=== PATIENT | female | born 1950 | race Caucasian/White ===

== ENCOUNTER → 2017-01-19 | Outpatient (CLI) | payer MEDICARE, OTHER ==
[~2017-01-19] MED LIST: BIO-TN500 MCG PO; BIOTIN1000 MCG PO; CALCIUM ACETAT667 MG PO; CARDURA1 MG PO; CARVEDILOL25 MG PO; COMBIGAN 0.2%-0.5 ML OU; DIOVAN320 MG PO; ECOTRIN81 MG PO; ELOQUIS PO; HUMALOG100 U/ML; LASIX20 MG PO; LASIX40 MG PO; LIPITOR40 MG PO; NITRODISC T; NOVOLOG100 U/ML SC; RANEXA500 MG PO; RENO CAPS1 SGL PO; SYNTHROID,LEVO88 MCG PO; SYNTHROID0.088 MG PO; TERAZOSIN1 MG PO; VENTOLIN0.09 MG/AC IH; VIBRAMYCIN100 MG PO; VITAMIN D32000 I1 PO; VITAMIN E ACET PO; VITAMIN E100 I1 PO; ZITHROMAX Z PA250 MG PO; eliquis
== END ==
LOC: US 01:06
DX: R10.2 Pelvic and perineal pain (principal)

== ENCOUNTER 2018-04-02 11:33 | Inpatient (IN) | payer MEDICARE, OTHER ==
[~2018-04-02] VITALS: Ht 154.9 cm; Wt 91.7 kg
--- NOTE | ~2018-04-02 | PR ---
[place], [place] PROGRESS NOTE NAME: GLEN COLMENARES [facility] #: [id number] UNIT #: [id number] ROOM: 525 DOCTOR: JONO BOLANOS MD BIRTHDATE: [birth year] DOS: 04/03/2018 CARDIOLOGY PROGRESS NOTE SUBJECTIVE: The patient was seen at her bedside today, 04/03/2018, with her in attendance. She is a 67-year-old woman with a history of diabetes, on an insulin pump, who presented to the hospital after a syncopal episode at home. She apparently ate a piece of toast without any spread for breakfast and an hour and a half later in her baptism after walking to her pew, she sat down and then lost consciousness. She did not have any excessive sweating beforehand, although she felt nauseous afterwards. She took two sugar tablets and then checked her sugar. Her blood sugar at that point was 90 and subsequently was 65. She was orthostatic as well. She was given sugar and fluid and now feels back to normal. I did review her echocardiogram, which showed normal left ventricular size, wall motion and systolic function with mild LVH and stage 3 diastolic relaxation abnormalities. There were no wall motion abnormalities or significant valve abnormalities. PHYSICAL EXAMINATION: VITAL SIGNS: Her pulse is 94 and irregularly irregular. Blood pressure is 154/75. She is no longer orthostatic. She is afebrile. NECK: Supple. She has no jugular distention. Carotids are full. Her neck exam does show a right carotid bruit. LUNGS: Respirations are unlabored. Chest is clear. HEART: Has an irregularly irregular rhythm without murmurs or gallops. ABDOMEN: Benign. EXTREMITIES: Showed no edema. Carotid ultrasound did show greater than 70% stenosis on the right and less than 50% stenosis on the left. IMPRESSION: 1. Syncopal episode, probably due to hypoglycemia, although I cannot rule out orthostatic hypotension and dehydration. 2. Diabetes mellitus managed with insulin on an insulin pump. 3. Atrial fibrillation. 4. Chronic diastolic heart failure. PLAN: I would have a dietitian speak to her about the kinds of food she eats especially since she is on an insulin pump. I did encourage her to remain well hydrated. No other cardiac workup is planned at this time. She does have right carotid stenosis and she should see a vascular surgeon for their opinion as an outpatient; however, I doubt that it had anything to do with her syncopal episode and at this point appears to be asymptomatic. I thank the hospitalist physicians for asking our advice regarding her care. [place], [place] PROGRESS NOTE NAME: GLEN COLMENARES UNIT #: [id number] ROOM: [facility] DOCTOR: JONO BOLANOS MD BIRTHDATE: [birth year] JONO BOLANOS MD CM:PNTRANS [id number] JONO BOLANOS MD 04/04/18 0205 interface
--- NOTE | ~2018-04-02 | EKG ---
[place], [place] ELECTROCARDIOGRAM REPORT NAME: GLEN COLMENARES UNIT #: [id number] ROOM: 525 DOCTOR: JEOVANY DRAFT REPORT BIRTHDATE: [birth year] [facility] Test Date: 2018-04-02 Test Time: 11:49:28 Pat Name: GLEN COLMENARES Department: Room: [facility] Gender: F Feed Weigher: Rayna Paul : 1950 Requested By: HERI ADLER Order Number: [id number] Reading MD: Fiordaliza Hensley MD Measurements Intervals [place] Rate: 91 P: IN: QRS: 45 QRSD: 94 T: 18 QT: 392 QTc: 483 Interpretive Statements Atrial fibrillation Low voltage, precordial leads No previous ECG available for comparison Electronically Signed On 04-07-2018 9:26:23 PST by Fiordaliza Hensley MD CM:EKGRPT:ELECTROCARDIOGRAM REPORT [id number] HERI ADLER MD EPIPHDORETHA DRAFT REPORT HERI ADLER MD
[~2018-04-02 11:33] MED LIST changes: +RENO CAPS SOFTGE1 MG PO; -RENO CAPS1 SGL PO
[2018-04-02 11:39] VITALS: BP 133/59
--- NOTE | 2018-04-02 11:45 | NUR ---
PATIENT IS ALERT AND ORIENTED. LUNG BERRY CLEAR THROUGHOUT. TRACE EDEMA NOTED TO BILATERAL LOWER EXTREMITIES. INSULIN PUMP NOTED IN WHICH GLUCOSE WAS CHECKED BY AMBULANCE WHICH WAS REPORTED TO BE 122. PATIENT REPORTS SHE 0NLY ATE 1 PIECE OF TOAST TODAY. SHE REPORTS AFTER SHE CAME TO THEY GAVE HER 2 GLUCOSE TABLETS WHILE IN [place]. NO DIAPHORESIS NOTED. PATIENT DOES REPORTS AFTER WALKING UP THE STAIRS SHE DOES REMEMBER BEING SLIGHTLY SOB IN WHICH SHE CURRENTLY DENIES.
[2018-04-02 12:16] LABS: BASO % 0.8 % (0.0-1.0); EOS # 0.1 10*3/uL (0.0-0.4); EOS % 1.3 % (1.0-4.0); HEMATOCRIT 36.5 % (37.0-47.0); LYMPH # 0.6 10*3/uL (1.3-4.4); LYMPH % 11.3 % (27.0-41.0); MEAN CELL VOLUME 98.1 fl (81.0-99.0); MEAN CORPUSCULAR HGB 32.3 pg (27.0-31.0); MEAN CORPUSCULAR HGB CONC 32.9 g/dl (33.0-37.0); MEAN PLATELET VOLUME 9.9 fl (9.6-12.3); MONO # 0.5 10*3/uL (0.1-1.0); MONO % 9.5 % (3.0-9.0); NEUT # 4.1 10*3/uL (2.3-7.9); NEUT % 76.9 % (47.0-73.0); PLATELET COUNT AUTOMATED 118 10*3/uL (130-400); RED BLOOD COUNT 3.72 10*6/uL (4.10-5.10); RED CELL DISTRI WIDTH 15.4 % (0-14.5); WHITE BLOOD COUNT 5.3 10*3/uL (4.8-10.8)
[2018-04-02 12:26] LABS: ACT PARTIAL THROMBO TIME 30.8 SECONDS (20.8-31.5); INTERNATIONAL NORM RATIO 1.3 (2.0-3.5)
[2018-04-02 12:33] LABS: ALBUMIN 3.1 gm/dl (3.1-4.5); CREATININE 2.17 mg/dL (0.55-1.02)
[2018-04-02 12:34] LABS: TROPONIN I 0.015 ng/ml (<0.045)
[2018-04-02 12:39] LABS: THYROID STIM HORMONE (HS) 1.57 uIU/ml (0.358-4.75)
[2018-04-02 12:50] VITALS: BP 123/54
--- NOTE | 2018-04-02 13:03 | NUR ---
PATIENT DENIES ANY CURRENT SYMPTOMS. GLUCOSE WAS NOTED TO BE 65 ON LAB DRAW. ORANGE JUICE AND CRACKERS PROVIDED
[2018-04-02 13:15] VITALS: BP 92/76
--- NOTE | 2018-04-02 13:15 | NUR ---
A 67, admitted to 5E, under the services of JUAN MIGUEL Sibley DO with a diagnosis of SYNCOPE. Chief complaint is SYNCOPE. Patient arrived via stretcher from ER. Monitor applied. Initial assessment completed. Vital signs taken and recorded. JUAN MIGUEL SIBLEY DO notified of admission to the unit. Orders received. See assessment for past medical history, medications and allergies. Patient and/or family oriented to unit. [facility] visitation policy reviewed. Clothing/patient valuable form completed. TESS SARMIENTO
[2018-04-02 13:24] VITALS: BP 129/59
--- NOTE | 2018-04-02 13:48 | NUR ---
NOTIFIED DR HUANG OF +ORTHOS
--- NOTE | 2018-04-02 13:52 | NUR ---
ANSWERING SERVICE WAS NOTIFIED OF DR. CICI SUN. RESPONSE OF NOTIFICATION WAS OK I GOT YOUR MESSAGE. IRISH PECK
[2018-04-02] MEDS ORDERED: BIOTIN10000 MC1 PO (14:28)
[2018-04-02] MEDS ORDERED: LASIX20 MG PO (14:30)
[2018-04-02] MEDS ORDERED: ELIQUIS5 M1 PO (14:31)
--- NOTE | 2018-04-02 14:36 | NUR ---
MED REC UPDATED BY LIST PROVIDED BY PATIENT. PATIENT ALSO HAS AN INSULIN PUMP.
[2018-04-02 16:00] VITALS: BP 152/73
[2018-04-02 20:00] VITALS: BP 146/90
--- NOTE | 2018-04-02 22:40 | NUR ---
24 HR chart check completed.
--- NOTE | 2018-04-02 23:03 | NUR ---
ASSUMED CARE OF PT AT THIS TIME. PT IS AWAKE, A&OX3, SITTING UP IN CHAIR. IVF INFUSING AT 80/HR PER ORDER. PATIENT DENIES ANY DIZZINESS, SOB, OR ANY OTHER GENERALIZED DISCOMFORT. WILL MONITOR. CALL LIGHT LEFT IN REACH.
[2018-04-03] VITALS: BP 151/68
--- NOTE | 2018-04-03 03:05 | NUR ---
NOTIFIED OF + ORTHOS. ALSO AWARE OF PT ASYMTOMATIC AND WORRIED ABOUT RECEIVING MORE FLUIDS DUE TO HX OF CHF. PER , D/C FLUIDS AFTER FIRST BAG IS COMPLETE.
--- NOTE | 2018-04-03 03:26 | NUR ---
BAG 1 IVF COMPLETE. DISCONTINUED FLUIDS PER 'S ORDERS.
[2018-04-03 06:37] LABS: BASO % 0.4 % (0.0-1.0); EOS # 0.1 10*3/uL (0.0-0.4); EOS % 1.2 % (1.0-4.0); HEMATOCRIT 36.8 % (37.0-47.0); HEMOGLOBIN 11.7 g/dl (12.0-16.0); LYMPH # 0.9 10*3/uL (1.3-4.4); LYMPH % 17.6 % (27.0-41.0); MEAN CORPUSCULAR HGB 31.8 pg (27.0-31.0); MEAN CORPUSCULAR HGB CONC 31.8 g/dl (33.0-37.0); MEAN PLATELET VOLUME 10.5 fl (9.6-12.3); MONO # 0.5 10*3/uL (0.1-1.0); MONO % 10.5 % (3.0-9.0); NEUT # 3.4 10*3/uL (2.3-7.9); NEUT % 70.1 % (47.0-73.0); PLATELET COUNT AUTOMATED 114 10*3/uL (130-400); RED BLOOD COUNT 3.68 10*6/uL (4.10-5.10); WHITE BLOOD COUNT 4.9 10*3/uL (4.8-10.8)
[2018-04-03 06:54] LABS: ALBUMIN 3.2 gm/dl (3.1-4.5); CREATININE 1.93 mg/dL (0.55-1.02); PHOSPHOROUS 3.5 mg/dL (2.5-4.9); POTASSIUM 4.4 mmol/L (3.5-5.1)
--- NOTE | 2018-04-03 07:14 | NUR ---
SPOKE TO REGARDING ECHO COMPLETE VS ECHO LIMITED. INSTRUCTED TO KEEP ECHO COMPLETE ORDERED BY .
[2018-04-03 08:00] VITALS: BP 135/81
[2018-04-03 12:00] VITALS: BP 154/75
--- NOTE | 2018-04-03 12:31 | NUR ---
Kennel Hand in to talk to patient. Patient states lives at HOME with . There are NO steps in the home. Physician: NONE AT THIS TIME Pharmacy: [facility] Home health services: NONE Patient's level of ADLs: INDEPENDENT Patient has working utilities: YES DME: C PAP Follow-up physician's appointment after d/c: WILL NEED TO FIND PCP AND MAKE APPOINTMENT Does patient want to access PORTAL?: NO Discharge plan PT STATES SHE LIVES AT HOME WITH HER AND IS INDEPENDENT IN CARE. STATES SHE DOES NOT HAVE A PCP AT THE PRESENT TIME AND IS LOOKING FOR A NEW ONE BECAUSE HERS LEFT TOWN. SHE DOES SEE DR PEARCE, DR MARIE AND DR GODFREY THOUGH REGULARLY. DENIES ANY HOME NEEDS ON DISCHARGE. STATES HER WILL TAKE HER HOME ON DISCHARGE. WILL CONTINUE TO FOLLOW.. MARQUITA PRINGLE
--- NOTE | 2018-04-03 14:25 | NUR ---
AFTER SPEAKING WITH DR BOLANOS HE BELIEVES THAT THE PATIENT'S SYNCOPAL EPISODE WAS RELATED TO LOW BLOOD SUGAR. DR BOLANOS STATED HE RECOMMENDED SHE SPEAK TO A HOURLY SIGN LANGUAGE INTERPRETER. I INFORMED HIM I WOULD ORDER A DIETARY CONSULT.
--- NOTE | 2018-04-03 14:43 | NUR ---
GLEN COLMENARES [id number] Please refer to the physician's history and physical for past medical history, comorbid conditions, and allergies. Diagnosis: SUNCOPE AND COLLAPSE Sean Score: 23,LOW OR NO RISK WOUND DESCRIPTIONS: PATIENT'S LEFT 3RD TOE ASSESSED. CALLUS NOTED MEASURING 0.5cm X 0.5cm X <0.1cm. NO REDDNESS OR DRAINAGE. PATIENT DENIED PAIN AT TIME OF ASSESSMENT. PATIENT STATES THIS AREA HAS "BEEN THERE FOR YEARS." NO TREATMENT AT THIS TIME. Surface the patient is resting on: Isoflex SKIN PREVENTION RECOMMENDATION: 1. Pressure redistribution support surface as appropriate 2. Elevate heels 3. Remove boots/TEDS every shift and reapply 4. Head of bed 30 degrees as tolerated 5. Assess nutrition and hydration 6. Manage moisture 7. Avoid the use of containment devices while in bed 8. Use absorptive products on surfaces limit layers of linens on bed 9. Turn and reposition every 1-2 hours in bed and every 1 hour in chair as tolerated 10. Weight shifts every 15 minutes while up in chair 11. Offloading with pillows or device to keep heels elevated off bed 12. Monitor skin at least every shift 13. Inspect under medical devices twice a day
[2018-04-03 16:00] VITALS: BP 124/58
--- NOTE | 2018-04-03 17:07 | NUR ---
Nutritional Support Services Note: Discusing with pt and pts 1800cal diabetic diet. Diet copy given to pt. She has a good understanding of the diet. Needs to better comply with diet kind of got off track per patient. She also avoids high salt foods. All questions were answered. Encouraged follow up if needed. Dayana Ramirez Rdn Ld
--- NOTE | 2018-04-03 17:28 | NUR ---
PT DISCHARGED AT THIS TIME. IV REMOVED AND PRESSURE DRESSING APPLIED. VERBALIZED UNDERSTANDING OF DISCHARGE INSTRUCTION. HEART MONITOR RETURNED TO FLOOR.
== END 2018-04-03 17:28 | disposition home or self-care (01) | DRG 312 ==
LOC: ED 11:33 → 5E 12:35 → EDHOLD 12:35 → 5E 12:42
PROVIDERS: Emergency Medicine; Family Medicine; ADMIT Internal Medicine
DX: I95.1 Orthostatic hypotension (principal); N18.4 Chronic kidney disease, stage 4 (severe); I13.0 Hypertensive heart and chronic kidney disease with heart failure and stage 1 through stage 4 chronic kidney disease, or unspecified chronic kidney disease; I50.32 Chronic diastolic (congestive) heart failure; E03.9 Hypothyroidism, unspecified; I48.2 Chronic atrial fibrillation; E86.0 Dehydration; E11.649 Type 2 diabetes mellitus with hypoglycemia without coma; H40.9 Unspecified glaucoma; E11.22 Type 2 diabetes mellitus with diabetic chronic kidney disease; Z88.2 Allergy status to sulfonamides; Z98.42 Cataract extraction status, left eye; Z98.41 Cataract extraction status, right eye; Z79.4 Long term (current) use of insulin; Z80.42 Family history of malignant neoplasm of prostate; Z79.82 Long term (current) use of aspirin

== ENCOUNTER 2018-09-20 10:13 | Emergency (ER) | payer MEDICARE, OTHER ==
[~2018-09-20] VITALS: Ht 152.4 cm; Wt 90.7 kg
--- NOTE | ~2018-09-20 | EKG ---
[place], [place] ELECTROCARDIOGRAM REPORT NAME: GLEN COLMENARES UNIT #: [id number] ROOM: DOCTOR: EPIPHANY DRAFT REPORT BIRTHDATE: [birth year] [facility] Test Date: 2018-09-20 Test Time: 10:14:53 Pat Name: GLEN COLMENARES Department: Room: Gender: F Industrial Relations Director: : 1950 Requested By: BRIGITTE SOSA Order Number: [id number] Reading MD: Zoey Haines Measurements Intervals [place] Rate: 82 P: [place]: QRS: 79 QRSD: 117 T: 61 QT: 382 QTc: 446 Interpretive Statements Atrial fibrillation Nonspecific intraventricular conduction delay Low voltage, extremity and precordial leads Consider anterior infarct Compared to ECG 04/02/2018 11:49:28 Intraventricular conduction delay now present Myocardial infarct finding now present Electronically Signed On 09-21-2018 8:38:03 PDT by Zoey Haines CM:EKGRPT:ELECTROCARDIOGRAM REPORT [id number] BRIGITTE THAYER DRAFT REPORT BRIGITTE SOSA M.D.
[~2018-09-20 10:13] MED LIST changes: +ELIQUIS5 M1 PO; +HARD NAILS2500 MCG PO
[2018-09-20 10:35] LABS: BASO % 0.5 % (0.0-1.0); EOS # 0.1 10*3/uL (0.0-0.4); EOS % 0.9 % (1.0-4.0); HEMATOCRIT 39.6 % (37.0-47.0); LYMPH # 0.6 10*3/uL (1.3-4.4); LYMPH % 9.5 % (27.0-41.0); MEAN CELL VOLUME 94.7 fl (81.0-99.0); MEAN CORPUSCULAR HGB 31.1 pg (27.0-31.0); MEAN CORPUSCULAR HGB CONC 32.8 g/dl (33.0-37.0); MONO # 0.6 10*3/uL (0.1-1.0); MONO % 8.9 % (3.0-9.0); NEUT # 5.2 10*3/uL (2.3-7.9); NEUT % 79.7 % (47.0-73.0); PLATELET COUNT AUTOMATED 137 10*3/uL (130-400); RED BLOOD COUNT 4.18 10*6/uL (4.10-5.10); RED CELL DISTRI WIDTH 17.7 % (0-14.5); WHITE BLOOD COUNT 6.5 10*3/uL (4.8-10.8)
[2018-09-20 10:47] LABS: ACT PARTIAL THROMBO TIME 27.3 SECONDS (20.0-32.1); INTERNATIONAL NORM RATIO 1.3 (2.0-3.5)
[2018-09-20 10:51] LABS: CREATININE 2.13 mg/dL (0.55-1.02); POTASSIUM 4.1 mmol/L (3.5-5.1); TOTAL PROTEIN 6.9 gm/dL (6.4-8.2); TROPONIN I 0.019 ng/ml (<0.045)
[2018-09-20 11:51] VITALS: BP 134/69
[2018-10-13] MEDS ORDERED: Lopressor25 MG PO (09:43)
[2018-10-13] MEDS ORDERED: [UNRECOGNIZED DRUG - OTHER] MC (09:47)
== END 2018-09-20 12:10 | disposition left against medical advice (07) ==
LOC: ED 10:13
PROVIDERS: Emergency Medicine
DX: S00.83XA Contusion of other part of head, initial encounter (principal); S00.12XA Contusion of left eyelid and periocular area, initial encounter; R55 Syncope and collapse; H11.32 Conjunctival hemorrhage, left eye; I48.91 Unspecified atrial fibrillation; E10.22 Type 1 diabetes mellitus with diabetic chronic kidney disease; I13.0 Hypertensive heart and chronic kidney disease with heart failure and stage 1 through stage 4 chronic kidney disease, or unspecified chronic kidney disease; N18.9 Chronic kidney disease, unspecified; E03.9 Hypothyroidism, unspecified; Z88.2 Allergy status to sulfonamides; Z79.899 Other long term (current) drug therapy; Z79.82 Long term (current) use of aspirin; W01.198A Fall on same level from slipping, tripping and stumbling with subsequent striking against other object, initial encounter; Y93.89 Activity, other specified; Y92.090 Kitchen in other non-institutional residence as the place of occurrence of the external cause; Y99.8 Other external cause status

== ENCOUNTER → 2018-10-10 | Outpatient (CLI) | payer MEDICARE, OTHER ==
[~2018-10-10] MED LIST changes: +Lopressor25 MG PO; +[UNRECOGNIZED DRUG - OTHER] MC
== END | disposition home or self-care (01) ==
LOC: MAMMO 02:11
DX: Z12.31 Encounter for screening mammogram for malignant neoplasm of breast (principal)

== ENCOUNTER 2018-11-25 13:16 | Emergency (ER) | payer MEDICARE, OTHER ==
[~2018-11-25] VITALS: Ht 152.4 cm; Wt 87.1 kg
[2018-11-25 13:23] VITALS: BP 128/72
== END 2018-11-25 15:40 | disposition home or self-care (01) ==
LOC: ED 13:16
DX: R04.0 Epistaxis (principal); I13.0 Hypertensive heart and chronic kidney disease with heart failure and stage 1 through stage 4 chronic kidney disease, or unspecified chronic kidney disease; E11.22 Type 2 diabetes mellitus with diabetic chronic kidney disease; N18.4 Chronic kidney disease, stage 4 (severe); I50.9 Heart failure, unspecified; E03.9 Hypothyroidism, unspecified; I48.2 Chronic atrial fibrillation; Z88.2 Allergy status to sulfonamides; Z79.899 Other long term (current) drug therapy; Z79.82 Long term (current) use of aspirin; Z79.4 Long term (current) use of insulin

== ENCOUNTER 2018-11-30 17:16 | Emergency (ER) | payer MEDICARE, OTHER ==
[~2018-11-30] VITALS: Wt 102.5 kg
[2018-11-30 17:40] LABS: ABG HCO3 21.6 mmol/l (22-26); ABG O2 SATURATION 97.4 % (95-97)
[2018-11-30 17:43] LABS: ABG BASE EXCESS -10.3 mmol/L (-2.0-2.0); ARTERIAL BLOOD GAS PCO2 71.4 mmHg (35-45); ARTERIAL BLOOD GAS PH 7.099 (7.35-7.45)
[2018-11-30 18:21] VITALS: BP 180/100
== END 2018-11-30 18:36 | disposition expired ==
LOC: ED 17:16
PROVIDERS: Emergency Medicine
DX: I46.9 Cardiac arrest, cause unspecified (principal); I13.0 Hypertensive heart and chronic kidney disease with heart failure and stage 1 through stage 4 chronic kidney disease, or unspecified chronic kidney disease; E11.22 Type 2 diabetes mellitus with diabetic chronic kidney disease; N18.4 Chronic kidney disease, stage 4 (severe); I50.9 Heart failure, unspecified; E03.9 Hypothyroidism, unspecified; I48.2 Chronic atrial fibrillation; Z88.2 Allergy status to sulfonamides; Z79.899 Other long term (current) drug therapy; Z79.82 Long term (current) use of aspirin; Z79.4 Long term (current) use of insulin